=== PATIENT | female | born 1975 | race Caucasian/White ===

== ENCOUNTER 2016-04-01 13:15 | Emergency (ER) | payer BC ==
--- NOTE | 2016-04-01 15:54 | DIAGNOSTIC IMAGING REPORT ---
PROCEDURE: CT HEAD WITHOUT CONTRAST INDICATION: WEAKNESS TECHNIQUE: Noncontrast axial images with sagittal and coronal reformations. COMPARISON: None. FINDINGS: Sulci, ventricular system, and brain parenchyma are normal. No evidence of acute intracranial process. Visualized mastoids and sinuses are clear. IMPRESSION: 1. Negative non-enhanced head CT. 2. Findings discussed with Dr. Gutierrez at 03:46 p.m., [place] Standard Time
--- NOTE | 2016-04-01 15:58 | ED ORDER SUMMARY ---
..... Patient: MONICA HOOKS OrderSheet [facility] VisitID: [id number] [address] [place] [address] 40y, F Registration Date/Time: 04/01/2016 ORDER SHEET Weight: 136.5 kg (stated) Allergies: Cipro, Sulfa Antibiotics, Vicodin GENERAL ORDERS: Manager Advanced (Continuous) (L sided weakness) (13:42 04/01/2016 Elvia R.N. verbal order read back to Erica RUANO) (Ack 13:43 LNations ER Tech1) (14:18 EHassan R.N.) UA-Culture if indicated Urgent (13:42 04/01/2016 Elvia Jordan.N. verbal order read back to Erica RUANO) (Ack 13:43 LNations ER Tech1) (14:35 EHassarigoberto R.N.) EKG - ER Stat (13:42 04/01/2016 Elvia BrizuelaN. verbal order read back to Erica RUANO) (Ack 13:43 LNations ER Tech1) (13:51 LNations ER Tech1) Cardiac Panel Stat (13:42 04/01/2016 Elvia Jordan.N. verbal order read back to Erica RUANO) (Ack 13:43 LNations ER Tech1) (14:18 EHassan R.N.) CT Head wo Cont Urgent (15:08 04/01/2016 Erica RUANO) (15:08 Erica RUANO) (Cancelled: Other15:08 Erica RUANO) CT Head wo Cont Urgent (15:08 04/01/2016 Erica RUANO) (Ack 15:14 LNations ER Tech1) (15:28 EHassan R.N.) Urine Urgent (15:09 04/01/2016 Erica RUANO) (Ack 15:14 LNations ER Tech1) (15:27 EHassan R.N.) MEDICATION ORDERS: IV FLUIDS: IV Saline Lock (13:42 04/01/2016 Elvia BrizuelaNJune verbal order read back to Erica RUANO) (14:18 EHassan R.N.) ORDER SHEET NOTES: [Electronically signed by Arline Hennessy R.N. (16:43 04/01/2016)] [Electronically signed by Devan Gutierrez MD (09:30 04/11/2016)] [Electronically locked/signed by Arline Hennessy R.N. (16:43 04/01/2016)]
--- NOTE | 2016-04-01 15:58 | ED CLINICAL REPORT ---
Clinical Report - Physicians/Mid Levels [facility] [address] [place] [address] 04/01/2016 13:16 Patient: MONICA HOOKS Time Seen: 13:32. Arrived- By private vehicle. Historian- patient. HISTORY OF PRESENT ILLNESS Chief Complaint: WEAKNESS and PARESTHESIA. This started about 2 days ago and is still present. It was abrupt in onset and has been constant. The patient has had new onset of weakness of the left face (mild), left arm (mild), left hand (mild), left leg (mild) and left foot (mild). She has had new onset of numbness, (on the left side of her tongue). No tingling, impaired speech or swallowing, visual disturbance or recent fall. No difficulty walking. At its maximum deficit described as mild. When seen in the E.D., it was almost gone. No dizziness, altered mental status, seizure or blackouts. Usually is alert and oriented X3 and has normal mobility. REVIEW OF SYSTEMS No chills, fever, sweats, calf pain or chest pain. No cough, difficulty breathing, pedal edema, palpitations or abdominal pain. No constipation, diarrhea, nausea, vomiting or urinary problems. The patient has had a headache. All systems otherwise negative, except as recorded above. PAST HISTORY Problems: Hyperlipidemia. UTI - Urinary Tract Infection. Pyelonephritis. Obesity. Hypomagnesemia. Abdominal Pain. Leukocytosis. Depression. Gallstone(s). Chronic Headache. Anxiety Reaction. Diabetes Mellitus. Gastroparesis. Migraine Headache. Medications: NovoLIN 70/30 Subcutaneous 50 Units 2 x daily, and 20 Units once. Ibuprofen Oral. MetFORMIN HCl Oral (Tablet 500 mg) 2 tablets, 2x a day. Reglan Oral (Tablet 10 mg) 1 tablet, PRN. Allergies: Cipro. Sulfa Antibiotics. Vicodin. SOCIAL HISTORY Never smoker. History of occasional drug use: marijuana. No alcohol use. FAMILY HISTORY Denies family medical history. ADDITIONAL NOTES The nursing notes have been reviewed. PHYSICAL EXAM Vital Signs: 04/01/2016 13:28 BP: 136/71. HR: 88. RR: 16. O2 saturation: 99%. Temp: 98.3 F. Pain level now: 09/02. Have been reviewed. Appearance: Alert. No acute distress. Head: Head atraumatic. Eyes: Pupils equal, round and reactive to light. ENT: Normal ENT inspection. Airway intact. Pharynx normal. No trouble handling secretions. Neck: Normal inspection. Neck supple. No meningeal signs or carotid bruit. CVS: Normal heart rate and rhythm. Heart sounds normal. Respiratory: No respiratory distress. Breath sounds normal. Abdomen: Soft and nontender. No organomegaly. Back: Normal inspection. Skin: Skin warm and dry. Normal skin color. No rash. Normal skin turgor. Extremities: Extremities exhibit normal ROM. No calf tenderness. No lower extremity edema. Neuro: Alert. Oriented X 3. Mood/affect normal. Speech normal. Cranial nerves normal (as tested). No cerebellar findings. No motor deficit. No sensory deficit. Reflexes normal. No depression of the gag reflex. LABS, X-RAYS, AND EKG EKG: Rate: 82. Nondiagnostic Q waves in lead II, III and aVF. Prior EKG unavailable. The study has been independently viewed by me. CT Head: (Exam(s): CT HEAD WITHOUT CONTRAST Date of Exam: 04/01/2016 __ PROCEDURE: CT HEAD WITHOUT CONTRAST INDICATION: WEAKNESS TECHNIQUE: Noncontrast axial images with sagittal and coronal reformations. COMPARISON: None. FINDINGS: Sulci, ventricular system, and brain parenchyma are normal. No evidence of acute intracranial process. Visualized mastoids and sinuses are clear. IMPRESSION: 1. Negative non-enhanced head CT.). The study was interpreted contemporaneously by me and discussed with the radiologist. Laboratory Tests: UA-Culture if indicated: (MADI: 04/01/2016 14:30) ( MsgRcvd 04/01/2016 14:46) Final results Test Result Flag Units (Reference) URINE COLOR YELLOW URINE APPEARANCE CLOUDY URINE GLUCOSE 2+ (NEGATIVE) URINE BILIRUBIN NEGATIVE (NEGATIVE) URINE KETONE NEGATIVE (NEGATIVE) URINE SPECIFIC GRAVITY >= 1.030 (1.010-1.030) URINE PH 6.0 (5.0-8.0) URINE PROTEIN 1+ (NEGATIVE) URINE UROBILINOGEN 0.2 EU/dL (0.2-1.0) URINE NITRITE NEGATIVE (NEGATIVE) URINE BLOOD NEGATIVE (NEGATIVE) URINE LEUK ESTERASE NEGATIVE (NEGATIVE) URINE RBC NONE SEEN rbc/hpf (0-1) URINE WBC 3-5 wbc/hpf (0-1) URINE EPITHELIAL CELLS >15 EPI/hpf (0-5) URINE BACTERIA MODERATE (2+ TO 3+) (NONE SEEN) URINE COMMENT CULT NOT INDICATED 1+ YEAST. CULTURE NOT INDICATED DUE TO >15 EPITHELIAL CELLSINDICATING CONTAMINATION. IF CULTURE IS STILL NEEDED, PLEASECALL THE LAB.URINE CULTURES ARE SET-UP BASED ON THE FOLLOWING CRITERIA:POSITIVE NITRITEPOSITIVE LEUKOCYTE ESTERASEGREATER THAN 10 WHITE BLOOD CELLSMODERATE (2+) OR GREATER BACTERIA Urine: (MADI: 04/01/2016 14:30) ( [facility] 04/01/2016 15:15) Final results Test Result Flag Units (Reference) URINE NEGATIVE CBC w Diff: (MADI: 04/01/2016 14:20) ( [facility] 04/01/2016 14:24) Final results Test Result Flag Units (Reference) WHITE BLOOD COUNT 10.7 K/uL (4.5-11.5) RED BLOOD COUNT 4.55 M/uL (4.00-5.20) HEMOGLOBIN 11.7 L gm/dL (12.0-16.0) HEMATOCRIT 36.2 % (36.0-46.0) MEAN CELL VOLUME 80 fL (80-100) MEAN CORPUSCULAR HGB 26 pg (26-34) MEAN CORPUSCULAR HGB CONC 32 g/dL (31-37) RED CELL DISTRIBUTION WIDTH 15.2 H % (11.6-14.8) PLATELET COUNT 339 K/uL (150-400) NEUTROPHIL % 66.3 % (50-75) LYMPH % 25.8 % (25-40) MONO % 5.0 % (3-14) EOSINOPHIL % 2.4 % (0-4) BASOPHIL % 0.5 % (0-2) CHEM 13 PANEL: (MADI: 04/01/2016 14:20) ( MsgRcvd 04/01/2016 14:48) Final results Test Result Flag Units (Reference) GLUCOSE 281 H mg/dL (70-110) BUN 17 mg/dL (7-18) CREATININE 1.1 mg/dL (0.6-1.3) Estimated GFR 58.18 mL/min Estimated GFR- >60 mL/min Note: Persistent reduction over 3 months in eGFR<60 mL/min/1.73 m2 defines CKD. Patients with eGFR values>=60 mL/min/1.73 m2 may also have CKD if evidence ofpersistent proteinuria. Additional information may be foundat www.kidney.org. SODIUM 136 mmol/L (136-145) POTASSIUM 4.3 mmol/L (3.5-5.1) CHLORIDE 101 mmol/L (98-107) CARBON DIOXIDE 24 mmol/L (21-32) CALCIUM 8.9 mg/dL (8.5-10.1) TOTAL PROTEIN 7.9 g/dL (6.4-8.2) ALBUMIN 3.3 g/dL (3.3-5.0) BILIRUBIN, TOTAL 0.2 mg/dL (0.0-1.0) ALKALINE PHOSPHATASE 77 U/L (46-116) AST (SGOT) 24 U/L (15-37) ALT (SGPT) 41 U/L (12-78) MAGNESIUM 1.5 L mg/dL (1.8-2.4) CPK 93 U/L (24-260) TROPONIN I 0.05 ng/mL (0.00-1.5) TROPONIN REFERENCE RANGE:<0.1 NEGATIVE0.1-1.5 INDETERMINANT>1.5 POSITIVE . PROGRESS AND PROCEDURES Course of Care: Patient is stable. Patient/family counseled. Old medical records reviewed. Disposition: Discharged. Condition: stable. CLINICAL IMPRESSION Chronic, moderately well controlled diabetes with hyperglycemia. Paresthesia INSTRUCTIONS Warnings: Further evaluation is necessary. GENERAL WARNINGS: Return or contact your physician immediately if your condition worsens or changes unexpectedly, if not improving as expected, or if other problems arise. Your Current Medications: CONTINUE TAKING THE FOLLOWING MEDICATIONS: Ibuprofen Oral. MetFORMIN HCl Oral : Tablet 500 mg, 2 tablets 2x a day. NovoLIN 70/30 Subcutaneous : 50 Units 2 x daily, and 20 Units once. Reglan Oral : Tablet 10 mg, 1 tablet PRN. Follow-up: Follow up with your doctor in four days. Call for an appointment. Follow up with a neurologist- as recommended by your primary care physician. Understanding of the discharge instructions verbalized by patient. (Electronically signed by Devan Gutierrez MD 04/11/2016 9:30)
--- NOTE | 2016-04-01 15:58 | ED NURSING NOTES ---
Clinical Report - Nurses [facility] [address] [place] [address] 04/01/2016 13:16 Patient: MONICA HOOKS TRIAGE Triage time 13:28 Apr 01 2016. Acuity: LEVEL 3. Chief Complaint: WEAKNESS. Alert. ISIDRO COMA SCORE: Isidro Coma Scale: 15- eyes open spontaneously (4); best verbal response- oriented x 4 (5); best motor response- obeys commands (6). --13:38 Sekou Carrero R.N. 13:28 04/01/16. BP: 136/71. HR: 88. RR: 16. O2 saturation: 99% on room air. Temp: 98.3 F (oral). Pain level now: 7/10. Additional comments: Pain on L Forehead. --13:38 Sekou Carrero R.N. Weight: 136.5 kg stated. Height/Length: 68 inches Per Patient. BMI: 45.8. --13:34 Sekou Carrero R.N. Medications Ibuprofen Oral. MetFORMIN HCl Oral (Tablet 500 mg) 2 tablets, 2x a day. Reglan Oral (Tablet 10 mg) 1 tablet, PRN. --13:32 Sekou Carrero R.N. NovoLIN 70/30 Subcutaneous 50 Units 2 x daily, and 20 Units once. --13:33 Sekou Carrero R.N. Allergies Cipro. Sulfa Antibiotics. Vicodin. --13:32 Sekou Carrero R.N. Medication/allergy information source: the patient. --13:38 Sekou Carrero R.N. History Arrived by private vehicle. Historian: patient. Accompanied by father. ( (L)-sided weakness with tongue numbness. Ambulated to room). This started about 2 days ago. Patient was last known well (2 days ago). She has had a headache and dizziness. She has had numbness (tongue and L side of body). Treatment BATCH FREEZER: None. PAST MEDICAL HX: Immunizations: up-to-date. Last normal menstrual period was 3 weeks ago. Denies current . SOCIAL HX: Never smoker. History of drug use: marijuana. No alcohol use. No infectious disease exposure. ABUSE ASSESSMENT: No report of abuse. FALL RISK ASSESSMENT: Fall risk assessment completed. No fall risk identified. NUTRITIONAL RISK ASSESSMENT: The nutritional risk assessment revealed no deficiencies. FUNCTIONAL ASSESSMENT: Functional assessment: no impairments noted. LEARNING NEEDS ASSESSMENT: The learning needs assessment revealed no barriers. SKIN INTEGRITY ASSESSMENT: Skin integrity risk assessment completed. No skin integrity risk identified. --13:38 Sekou Carrero R.N. PROBLEMS: Hyperlipidemia. Pyelonephritis. Obesity. Hypomagnesemia. Abdominal Pain. Leukocytosis. Depression. Gallstone(s). Chronic Headache. Anxiety Reaction. Diabetes Mellitus. Immunizations. Gastroparesis. Migraine Headache. --13:30 Sekou Carrero R.N. Interventions ID band on patient. To treatment room. --13:38 Sekou Carrero R.N. PHYSICAL ASSESSMENT 14:15 PM late entry -. Baseline functional status: usually alert, oriented x4 and cooperative. Verbal response: usually clear and appropriate. Motor response: usually steady gait and moves all extremities equally GENERAL / NEURO / PSYCH: Awake. Oriented X 4. Alert. Appears in no acute distress. Isidro Coma Scale: 15- eyes open spontaneously (4); best verbal response- oriented x 4 (5); best motor response- obeys commands (6). Speech normal. Mood/affect normal. Moves all extremities. No motor deficit. The patient has had weakness of the left face, arm, hand, leg and foot. She has had numbness of the left face, arm, hand, leg and foot. NIH Stroke Scale: score 1. Level of Consciousness: alert (0). LOC Questions: both (0). LOC Commands: both (0). Best gaze: normal (0). Visual field loss: partial hemianopsia (1). Facial palsy: normal (0). Motor arm: no drift right arm (0). Motor leg: no drift right leg (0). Limb ataxia: none (0). Sensory loss: none (0). Aphasia: none (0). Dysarthria: normal (0). Extinction and inattention: none (0). HEENT: No facial asymmetry noted. Pupils equal, round and reactive to light. EOM intact. 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 RESPIRATORY: Breath sounds within normal limits. Respirations not labored. CVS: Normal sinus rhythm noted. Capillary refill less than 2 seconds. SKIN: Skin is intact, warm and dry. --14:50 Arline Hennessy R.N. NURSING PROGRESS NOTES EKG was performed by a tech and shown to the ED physician. Finger stick glucose: 275 mg/dL; performed by tech; result shown to the ED physician. --13:45 Tino Churchill 14:18 04/01/2016 Site #1 started via IV in the right antecubital space with an 20g angiocath; one attempt. Blood drawn: rainbow set. Labeled in the presence of the patient and sent to the lab. Saline lock flushed. --14:18 Arline Hennessy R.N. Cardiac rhythm: sinus tachycardia. The initial plan of care for this patient has been created This plan of care was discussed with the patient. state director, pulse oximeter and NIBP monitor placed on patient. Patient gowned. Reassurance given. Patient ID band checked for patient name, birthdate and medical record number: patient confirmed. Instructions provided to collect clean catch urine and patient verbalized understanding. Clean catch urine collected with return of yellow-colored clear urine; sample sent to lab for urinalysis. Specimen labeled in the presence of the patient. Overall patient status is the same- she states feels the same. GENERAL / NEURO / PSYCH: The patient reports global and occipital headache that is moderate in severity, is described as sharp and is associated with nausea (left side). She reports constant numbness of the left face, arm, hand and leg with tingling. Numbness is still present and worsening. Alert. Oriented X 4. Affect appears normal. Appears anxious. She reports weakness and numbness. HEENT: The patient reports visual field deficit. Pupils equal, round and reactive to light. RESPIRATORY: No respiratory distress. GI / : The patient reports nausea. SKIN: Skin is warm and dry. Two patient identifiers checked. Call light placed in reach. Side rails up x 1. Bed placed in lowest position. Brakes of bed on. Brakes of chair on. --14:30 Arline Hennessy R.N. 14:00 04/01/16. BP: 131/70 (large adult cuff) taken on the right arm, via an automated monitor, while lying. HR: 109. RR: 19. O2 saturation: 100% on room air. Pain level now: 09/02. Additional comments: left eye. --14:30 Arline Hennessy R.N. Finger stick glucose: 268; performed by nurse. --14:51 Arline Hennessy R.N. Patient transported to CT by stretcher. (1530 PM). Patient returned from CT by stretcher. (1537 PM). --15:36 Arline Hennessy R.N. Cardiac rhythm: normal sinus rhythm. state director, pulse oximeter and NIBP monitor placed on patient. Reassurance given. Overall patient status is the same- she states feels the same. GENERAL / NEURO / PSYCH: The patient reports headache. The patient reports numbness of the left arm, hand, leg and foot (same as before). Alert. No decreased alertness. Oriented X 4. Speech normal. GI / : The patient reports nausea. SKIN: Skin is warm and dry. Call light placed in reach. Side rails up x 1. Brakes of bed on. Brakes of chair on. --15:41 Arline Hennessy R.N. 15:39 04/01/16. BP: 118/74 (regular adult cuff) taken on the left arm, via an automated monitor, while lying. HR: 90. RR: 15. O2 saturation: 98%. Pain level now: 09/02. --15:41 Arline Hennessy R.N. late entry - 16:00 PM. --16:28 Arline Hennessy R.N. 16:00 04/01/16. BP: 118/74 (regular adult cuff) taken on the left arm, via an automated monitor, while lying. HR: 93 (regular and normal rate). RR: 15. O2 saturation: 100% on room air. Pain level now: 07/03. --16:28 Arline Hennessy R.N. DISPOSITION / DISCHARGE Cardiac rhythm: normal sinus rhythm. Departure time: 1642 PM. Condition at departure: improved and stable. The goals identified in the patient's plan of care were met. No learning barriers present. Discharge instructions provided and reviewed. Patient verbalized understanding. Written instructions provided in [place]. No medication instructions, diet instructions or activity restrictions. The patient was discharged by the physician. She was discharged home and unaccompanied at time of discharge. She left the Emergency Department ambulatory and via private vehicle. Patient driving. FALL RISK ASSESSMENT: Fall risk assessment completed. No fall risk identified. --16:42 Arline Hennessy R.N. 16:28 04/01/16. BP: 122/76 (regular adult cuff) taken on the left arm, while lying. HR: 94. RR: 16. O2 saturation: 100%. Temp: 98.2 F (oral). Pain level now: 06/03. --16:42 Arline Hennessy R.N. 16:40 04/01/2016 Site #1 removed upon discharge. Catheter intact. Manual pressure and bandaid applied. --16:43 Arline Hennessy R.N. Departure time: 1642 PM. --16:43 Arline Hennessy R.N. Locked/Released at 04/01/2016 16:43 by Arline Hennessy R.N.
--- NOTE | 2016-04-01 15:58 | ED ORDER SUMMARY ---
..... Patient: MONICA HOOKS OrderSheet [facility] VisitID: [id number] [address] [place] [address] 40y, F Registration Date/Time: 04/01/2016 ORDER SHEET Weight: 136.5 kg (stated) Allergies: Cipro, Sulfa Antibiotics, Vicodin GENERAL ORDERS: Fish Net Maker (Continuous) (L sided weakness) (13:42 04/01/2016 Elvia R.N. verbal order read back to Erica RUANO) (Ack 13:43 LNations ER Tech1) (14:18 EHassan R.N.) UA-Culture if indicated Urgent (13:42 04/01/2016 Elvia Jordan.N. verbal order read back to Erica RUANO) (Ack 13:43 LNations ER Tech1) (14:35 EHassarigoberto R.N.) EKG - ER Stat (13:42 04/01/2016 Elvia BrizuelaN. verbal order read back to Erica RUANO) (Ack 13:43 LNations ER Tech1) (13:51 LNations ER Tech1) Cardiac Panel Stat (13:42 04/01/2016 Elvia Jordan.N. verbal order read back to Erica RUANO) (Ack 13:43 LNations ER Tech1) (14:18 EHassan R.N.) CT Head wo Cont Urgent (15:08 04/01/2016 Erica RUANO) (15:08 Erica RUANO) (Cancelled: Other15:08 Erica RUANO) CT Head wo Cont Urgent (15:08 04/01/2016 Erica RUANO) (Ack 15:14 LNations ER Tech1) (15:28 EHassan R.N.) Urine Urgent (15:09 04/01/2016 Erica RUANO) (Ack 15:14 LNations ER Tech1) (15:27 EHassan R.N.) MEDICATION ORDERS: IV FLUIDS: IV Saline Lock (13:42 04/01/2016 Elvia BrizuelaNJune verbal order read back to Erica RUANO) (14:18 EHassan R.N.) ORDER SHEET NOTES: [Electronically signed by Arline Hennessy R.N. (16:43 04/01/2016)] [Electronically signed by Devan Gutierrez MD (09:30 04/11/2016)] [Electronically locked/signed by Arline Hennessy R.N. (16:43 04/01/2016)]
--- NOTE | 2016-04-11 09:30 | ED MAR SUMMARY ---
..... Medication Administration Record [facility] [address] [place], [place] [id number] Patient: MONICA HOOKS Visit ID: [id number] 40y, F Weight: 136.5 kg Height/Length: 68 in BMI: 45.8 ALLERGIES: Cipro, Sulfa Antibiotics, Vicodin
--- NOTE | 2016-04-11 09:30 | ED MED RECONCILIATION SUMMARY ---
Patient: MONICA HOOKS Medication Reconciliation Report [facility] VisitID: [id number] [address] [place] [address] 40y, F Registration Date/Time: 04/01/2016 Weight: 136.5 kg Height/Length: 68 in. BMI: 45.8 ALLERGIES: Cipro, Sulfa Antibiotics, Vicodin The patient's Home Medications are listed below: CONTINUE TAKING THE FOLLOWING MEDICATIONS: Ibuprofen Oral MetFORMIN HCl Oral (500 mg) 2 tablets, 2x a day NovoLIN 70/30 Subcutaneous 50 Units 2 x daily, and 20 Units once Reglan Oral (10 mg) 1 tablet, PRN The source(s) of the original Home Medication information: patient The following Medications were given to the patient in the Emergency Department: None. The following Medications were prescribed to the patient: None.
--- NOTE | 2016-04-11 09:30 | ED MED RECONCILIATION SUMMARY ---
Patient: MONICA HOOKS Medication Reconciliation Report [facility] VisitID: [id number] [address] [place] [address] 40y, F Registration Date/Time: 04/01/2016 Weight: 136.5 kg Height/Length: 68 in. BMI: 45.8 ALLERGIES: Cipro, Sulfa Antibiotics, Vicodin The patient's Home Medications are listed below: CONTINUE TAKING THE FOLLOWING MEDICATIONS: Ibuprofen Oral MetFORMIN HCl Oral (500 mg) 2 tablets, 2x a day NovoLIN 70/30 Subcutaneous 50 Units 2 x daily, and 20 Units once Reglan Oral (10 mg) 1 tablet, PRN The source(s) of the original Home Medication information: patient The following Medications were given to the patient in the Emergency Department: None. The following Medications were prescribed to the patient: None.
--- NOTE | 2016-04-11 09:30 | ED MAR SUMMARY ---
..... Medication Administration Record [facility] [address] [place], [place] [id number] Patient: MONICA HOOKS Visit ID: [id number] 40y, F Weight: 136.5 kg Height/Length: 68 in BMI: 45.8 ALLERGIES: Cipro, Sulfa Antibiotics, Vicodin
--- NOTE | 2016-04-11 09:30 | ED DISCHARGE INSTRUCTIONS ---
Patient: MONICA HOOKS General Instructions [facility] VisitID: [id number] [address] [place] [address] 40y, F Registration Date/Time: 04/01/2016 Chronic, moderately well controlled diabetes with hyperglycemia. Paresthesia INSTRUCTIONS Warnings: Further evaluation is necessary. GENERAL WARNINGS: Return or contact your physician immediately if your condition worsens or changes unexpectedly, if not improving as expected, or if other problems arise. Your Current Medications: CONTINUE TAKING THE FOLLOWING MEDICATIONS: Ibuprofen Oral. MetFORMIN HCl Oral : Tablet 500 mg, 2 tablets 2x a day. NovoLIN 70/30 Subcutaneous : 50 Units 2 x daily, and 20 Units once. Reglan Oral : Tablet 10 mg, 1 tablet PRN. Follow-up: Follow up with your doctor in four days. Call for an appointment. Follow up with a neurologist- as recommended by your primary care physician. Understanding of the discharge instructions verbalized by patient. ADDITIONAL INFORMATION Paraesthesias Paraesthesia refers to a burning or prickling sensation that is sometimes felt in the hands, arms, legs or feet. It can also occur in other parts of the body. It can also feel like tingling or numbness, skin crawling or itching.The sensation is usually painless. Most people have experienced pins and needles. This feeling happens when legs have been crossed for too long and pressure is placed on a nerve. This is a temporary paraesthesia. It quickly goes away once the pressure is relieved. There are many possible causes for chronic paraesthesias. These include such disorders as stroke, herniated disk (pressing on a nerve), trapped nerve in the shoulder, elbow or wrist (such as carpal tunnel syndrome), vitamin deficiencies or even certain medicines. Laboratory tests are needed to make an accurate diagnosis. These tests may include blood tests, X-ray, CT (computerized tomography) scan or a muscle test (electromyography).Depending on the cause, treatment may include physical therapy. Home Care: Do not make any changes to your medicines without advice from your doctor. If vitamins have been prescribed, remember to take them daily at the recommended dose. Because of a decrease in feeling, a numb hand or foot may be more prone to injury. Take care to protect these areas from cuts, bumps, bruises, sharma or other injury. Keep your nails trimmed and wash your hands and feet often. Wear shoes that fit well to avoid pressure points, blisters and ulcers. Look at your hands and feet carefully (including the soles of your feet and between your toes) at least once a week and notify your doctor of any open wounds or signs of infection. Follow Up with your doctor or as advised by our staff. You may need further testing to determine the exact cause of your paraesthesia. [NOTE: If blood tests, X-ray, CT scan or electromyography were done, specialists will review them. You will be notified of any new findings that may affect your care.] Get Prompt Medical Attention if any of the following occur: Numbness or weakness of the face, one arm or one leg Slurred speech, confusion, trouble speaking, walking or seeing Severe headache, fainting spell, dizziness or seizure Chest, arm, neck or upper back pain Loss of bladder or bowel control Open wound with redness, swelling or pus Diabetes with High Blood Sugar You have been treated for high blood sugar (hyperglycemia). This may be becauseof an infection or other illness;eating too many sweets or starches ; not taking enough insulin. Home care High blood sugar may cause symptoms that you can learn to recognize, such as these: If you feel like your blood sugar may be too high, measure it using a blood or urine test. If it is above your usual range, use the "sliding scale"rRegular insulin dose your doctor gave you to correct this. If no "sliding scale" orders were given, contact your doctor for further advice. If your blood sugar is over 300, and you can't reach your doctor, go to the hospital emergency room. Monitor and write down your blood sugars - and insulin dose, if you take insulin - atleast twice a day. Do this before breakfast and before dinner. Do this for the next 3 to 5 days. Follow-up care Follow up with your health care provderring the next week to review your blood sugar records. You will find out if you need to adjust your dose of insulin or other medicine for blood sugar. When to seek medical care Get prompt medical attention if either of these occur: High blood sugar.Symptoms are frequent urination, feeling dizzy, thirst, headache, nausea or vomiting, abdominal pain, and drowsiness or loss of consciousness. Low blood sugar. Symptoms are fatigue, headache, shakes, excess sweating, hunger, anxiety, reduced vision, drowsiness, weakness, confusion or loss of consciousness, and seizure. You have been given the following additional information: Paraesthesias Diabetic Hyperglycemia (Electronically signed by Devan Gutierrez MD 04/11/2016 9:30)
== END 2016-04-01 16:42 | disposition home or self-care (01) ==
LOC: ED SRH 13:15
DX: E11.65 Type 2 diabetes mellitus with hyperglycemia (principal); R20.8 Other disturbances of skin sensation; Z79.84 Long term (current) use of oral hypoglycemic drugs; Z79.4 Long term (current) use of insulin; Z79.1 Long term (current) use of non-steroidal anti-inflammatories (NSAID); Z88.5 Allergy status to narcotic agent; Z88.2 Allergy status to sulfonamides; Z88.1 Allergy status to other antibiotic agents
CPT/HCPCS: 90004; 90098; 90100; 90616; 92610; 92720; 93070; 95059